=== PATIENT | female | born 1985 | race Caucasian/White ===

== ENCOUNTER 2017-11-17 12:44 | Inpatient (IN) | payer SELFPAY ==
[2017-11-17] MEDS ORDERED: Sodium Chloride 0.9% 1,000 ML IV STA (13:06)
[2017-11-17] MEDS ORDERED: Alum-Mag Hydrox-Simethicone Susp (30 mL) PO STA (13:07)
--- NOTE | 2017-11-17 13:09 | C.PDOC ---
History Of Present Illness 31 y/o F c PSHx x 2 p/w abdominal distention and epigastric, nonradiating pain x 3 days associated with constipation x 2 days and NBNB vomiting x 2 this morning. Denies fever, chills, chest pain, dyspnea, dysuria. Time Seen by Provider: 11/17/17 13:01 Chief Complaint (Nursing): Abdominal Pain Past Medical History Vital Signs: Last Vital Signs Temp 97.7 F 11/17/17 12:46 Pulse 65 11/17/17 15:57 Resp 20 11/17/17 15:57 BP 107/67 11/17/17 15:57 Pulse Ox 98 11/17/17 15:57 - [facility] Procedures LOW CERVICAL (05/19/14) Family History: States: No Known Family Hx - Social History Hx Tobacco Use: No Hx Alcohol Use: No Hx Substance Use: No - Immunization History Hx Tetanus Toxoid Vaccination: No Hx Influenza Vaccination: Yes (UTD) Hx Pneumococcal Vaccination: No Review Of Systems Except As Marked, All Systems Reviewed And Found Negative. Constitutional: Negative for: Fever Cardiovascular: Negative for: Chest Pain Physical Exam - Physical Exam Additional Physical Exam Comments: Gen: No acute distress. Head: Normocephalic, atraumatic. Eyes: PERRL. ENT: Moist mucous membranes. Neck: Supple. Chest: No tenderness. CV: Regular rate. Radial pulses 2+ bilaterally. Resp: Clear to auscultation bilaterally. Abd: Soft, Epigastric tenderness without guarding. Distended. Extremities: No swelling or tenderness. Skin: No rash. Neuro: Alert, no focal deficit. ED Course And Treatment - Laboratory Results Result Diagrams: 11/17/17 13:44 11/17/17 13:44 O2 Sat by Pulse Oximetry: 99 Medical Decision Making Medical Decision Making: Patient with previous abdominal surgery now with vomiting, distention, and constipation. CT to rule out obstruction. Differential also includes gastritis and . CT Results PROCEDURE: CT Abdomen and Pelvis with contrast HISTORY: vomiting, abd distention, constipation COMPARISON: None. TECHNIQUE: Contrast dose: 100 mL Visipaque 320 Radiation dose: Total exam DLP = 754 mGy-cm. This CT exam was performed using one or more of the following dose reduction techniques: Automated exposure control, adjustment of the mA and/or kV according to patient size, and/or use of iterative reconstruction technique. FINDINGS: LOWER THORAX: Unremarkable. LIVER: Unremarkable. No gross lesion or ductal dilatation. GALLBLADDER AND BILE DUCTS: Calcified cholelithiasis with gallbladder wall thickening and mild pericholecystic hazy change. PANCREAS: Unremarkable. No gross lesion or ductal dilatation. SPLEEN: Unremarkable. ADRENALS: Unremarkable. No mass. KIDNEYS AND URETERS: Unremarkable. No hydronephrosis. No solid mass. VASCULATURE: Unremarkable. No aortic aneurysm. BOWEL: Unremarkable. No obstruction. No gross mural thickening. APPENDIX: Normal appendix. PERITONEUM: Unremarkable. No free fluid. No free air. LYMPH NODES: Unremarkable. No enlarged lymph nodes. BLADDER: Unremarkable. REPRODUCTIVE: Unremarkable. BONES: No acute fracture. OTHER FINDINGS: None. IMPRESSION: Findings suspicious for acute cholecystitis. Right upper quadrant ultrasound can be obtained for further evaluation. Findings conveyed to Dr. Ro by Dr. Miranda at 3:45 pm on 11/17/2017. US Impression: Findings concerning for cholelithiasis likely complicated by cholecystitis. No biliary obstruction. On re-exam, patient continues to have RUQ tenderness. Dr. Graves accepts to her service, residential appraiser states he will come down and evaluate patient. Disposition Discussed With : Lauren Graves - Disposition Disposition: HOSPITALIZED Disposition Time: 19:18 Condition: GUARDED Forms: [facility] (Tai[place]ese) - Clinical Impression Clinical Impression: Acute cholecystitis
[2017-11-17] MEDS ORDERED: Sodium Chloride 0.9% 1,000 ML ONE (13:29)
[2017-11-17] MEDS ORDERED: Aluminum Hydroxide/Magnesium Hydroxide Susp (30 mL) ONE (13:29)
[2017-11-17 13:48] LABS: BASO % 0.4 % (0.0-2.0); EOS # 0.1 K/uL (0.0-0.7); EOS % 1.6 % (0.0-4.0); HEMATOCRIT 40.4 % (34.0-47.0); LYMPH # 1.6 K/uL (1.0-4.3); LYMPH % 23.5 % (20.0-40.0); MEAN CELL VOLUME 89.4 fL (81.0-99.0); MEAN CORPUSCULAR HEMOGLOBIN 30.9 pg (27.0-31.0); MEAN CORPUSCULAR HGB CONC 34.6 g/dL (33.0-37.0); MEAN PLATELET VOLUME 8.7 fL (7.2-11.7); MONO # 0.4 K/uL (0.0-0.8); MONO % 6.1 % (0.0-10.0); RED CELL DISTRIBUTION WIDTH 12.4 % (11.5-14.5); WHITE BLOOD COUNT 6.6 K/uL (4.8-10.8)
[2017-11-17 13:59] LABS: BLOOD UREA NITROGEN 14 mg/dL (7-17); CARBON DIOXIDE 26 mmol/L (22-30); CHLORIDE 98 mmol/L (98-107); GFR AFRICAN-AMERICAN > 60; GLUCOSE,RANDOM 101 mg/dL (65-105); POTASSIUM 4.6 mmol/L (3.6-5.2); SODIUM 130 mmol/L (132-148)
[2017-11-17 14:00] LABS: ALB/GLOB RATIO 1.3 (1.0-2.1); ALKALINE PHOSPHATASE 47 U/L (38-126); ALT/SGPT 32 U/L (9-52); AST/SGOT 24 U/L (14-36); BILIRUBIN,TOTAL 0.4 mg/dL (0.2-1.3); CALCIUM 8.8 mg/dl (8.6-10.4); TOTAL PROTEIN 7.8 g/dL (6.3-8.3)
[2017-11-17 14:30] LABS: URINE BILIRUBIN NEGATIVE (NEGATIVE); URINE BLOOD NEGATIVE (NEGATIVE); URINE COLOR Straw (YELLOW); URINE GLUCOSE (UA) NORMAL (Normal); URINE KETONE NEGATIVE (NEGATIVE); URINE LEUKOCYTE ESTERASE NEG Leu/uL (Negative); URINE PROTEIN NEGATIVE (NEGATIVE); URINE UROBILINOGEN NORMAL mg/dL (0.2-1.0); WBC URINE < 1 /hpf (0-5)
[2017-11-17] MEDS ORDERED: Iodixanol 320 MG/ML 100 ML BOTTLE IV ONE (15:13)
--- NOTE | 2017-11-17 15:49 | CT ---
PROCEDURE: CT Abdomen and Pelvis with contrast HISTORY: vomiting, abd distention, constipation COMPARISON: None. TECHNIQUE: Contrast dose: 100 mL Visipaque 320 Radiation dose: Total exam DLP = 754 mGy-cm. This CT exam was performed using one or more of the following dose reduction techniques: Automated exposure control, adjustment of the mA and/or kV according to patient size, and/or use of iterative reconstruction technique. FINDINGS: LOWER THORAX: Unremarkable. LIVER: Unremarkable. No gross lesion or ductal dilatation. GALLBLADDER AND BILE DUCTS: Calcified cholelithiasis with gallbladder wall thickening and mild pericholecystic hazy change. PANCREAS: Unremarkable. No gross lesion or ductal dilatation. SPLEEN: Unremarkable. ADRENALS: Unremarkable. No mass. KIDNEYS AND URETERS: Unremarkable. No hydronephrosis. No solid mass. VASCULATURE: Unremarkable. No aortic aneurysm. BOWEL: Unremarkable. No obstruction. No gross mural thickening. APPENDIX: Normal appendix. PERITONEUM: Unremarkable. No free fluid. No free air. LYMPH NODES: Unremarkable. No enlarged lymph nodes. BLADDER: Unremarkable. REPRODUCTIVE: Unremarkable. BONES: No acute fracture. OTHER FINDINGS: None. IMPRESSION: Findings suspicious for acute cholecystitis. Right upper quadrant ultrasound can be obtained for further evaluation. Findings conveyed to Dr. Ro by Dr. Miranda at 3:45 pm on 11/17/2017.
[2017-11-17] MEDS ORDERED: Piperacill/Tazo 4.5gm in Dex 4.5 GM/100 ML BAG IVPB STA (19:03)
[2017-11-17] MEDS ORDERED: HYDROmorphone 1 mg/ml ISec IVP PRN (20:08)
[2017-11-17] MEDS ORDERED: Piperacillin/Tazobact 3.375 GM in Sodium Chloride 100 ML IVPB SCH (20:15)
[2017-11-17] MEDS: Dextrose 5%/0.45% NS 1,000 ML IV SCH (20:54)
--- NOTE | 2017-11-17 21:39 | CP.PCM.HP ---
History of Present Illness - History of Present Illness History of Present Illness: General Surgery H&P This is a 31F with no PMH who presents with 2 days of abdominal pain that began after eating pork and beans. She has no associated nausea and vomiting. She denies any nausea , vomiting, or change in bowel habits. She reports a similar pain like this early this week that was self limiting. She denies any fevers or chills at home. PMH: None Meds: None PSH: Social: Denies ETOH, Drugs, Tobacco LMP: Sep ALL: NKDA Present on Admission - Present on Admission Any Indicators Present on Admission: No Review of Systems - Constitutional Constitutional: Anorexia, Headache. absent: Chills, Fever - EENT Eyes: absent: Blind Spots Ears: absent: Dizziness - Cardiovascular Cardiovascular: absent: Chest Pain - Respiratory Respiratory: absent: Dyspnea, Dyspnea on Exertion - Gastrointestinal Gastrointestinal: Abdominal Pain. absent: Diarrhea, Nausea, Vomiting Past Patient History - Infectious Disease Hx of Infectious Diseases: None - Past Social History Smoking Status: Never Smoked - PSYCHIATRIC Hx Substance Use: No - SURGICAL HISTORY Hx Surgeries: Yes Hx Section: Yes (x2) - ANESTHESIA Hx Anesthesia: Yes Hx Anesthesia Reactions: No Hx Malignant Hyperthermia: No Meds Allergies/Adverse Reactions: Allergies Allergy/AdvReac Type Severity Reaction Status Date / Time No Known Allergies Allergy Verified 11/17/17 12:48 Physical Exam - Constitutional Appears: Non-toxic, No Acute Distress - Head Exam Head Exam: ATRAUMATIC, NORMOCEPHALIC - Eye Exam Eye Exam: EOMI - ENT Exam ENT Exam: Mucous Membranes Moist - Respiratory Exam Respiratory Exam: NORMAL BREATHING PATTERN - Cardiovascular Exam Cardiovascular Exam: REGULAR RHYTHM, +S1, +S2 - GI/Abdominal Exam GI & Abdominal Exam: Soft, Tenderness. absent: Distended, Firm, Guarding, Rebound, Rigid - Neurological Exam Neurological exam: Alert, Oriented x3 - Psychiatric Exam Psychiatric exam: Normal Affect, Normal Mood - Skin Skin Exam: Dry, Intact Results - Vital Signs Recent Vital Signs: Last Vital Signs Temp 99.1 F 11/17/17 19:15 Pulse 72 11/17/17 20:52 Resp 18 11/17/17 20:52 BP 102/67 11/17/17 20:52 Pulse Ox 100 11/17/17 20:52 - Labs Result Diagrams: 11/17/17 13:44 11/17/17 13:44 Labs: Laboratory Results - last 24 hr 11/17/17 11/17/17 11/17/17 13:44 13:44 14:19 WBC 6.6 RBC 4.52 Hgb 14.0 D Hct 40.4 MCV 89.4 D MCH 30.9 MCHC 34.6 RDW 12.4 Plt Count 191 MPV 8.7 Neut % (Auto) 68.4 Lymph % (Auto) 23.5 [place] % (Auto) 6.1 Eos % (Auto) 1.6 Baso % (Auto) 0.4 Neut # 4.5 Lymph # 1.6 [place] # 0.4 Eos # 0.1 Baso # 0.0 Sodium 130 L Potassium 4.6 Chloride 98 Carbon Dioxide 26 Anion Gap 11 BUN 14 Creatinine 0.5 L Est GFR ( Amer) > 60 Est GFR (Non-Af Amer) > 60 Random Glucose 101 Calcium 8.8 Total Bilirubin 0.4 AST 24 ALT 32 Alkaline Phosphatase 47 Total Protein 7.8 Albumin 4.4 Globulin 3.4 Albumin/Globulin Ratio 1.3 Lipase 54 Urine Color Straw Urine Clarity Clear Urine pH 6.0 Ur Specific [place] 1.008 Urine Protein Negative Urine Glucose (UA) Normal Urine Ketones Negative Urine Blood Negative Urine Nitrate Negative Urine Bilirubin Negative Urine Urobilinogen Normal Ur Leukocyte Esterase Neg Urine WBC (Auto) < 1 Ur Squamous Epith Cells 1 Urine HCG, Qual Negative Assessment & Plan - Assessment and Plan (Free Text) Assessment: This is a 31F with no PMH presenting with an acute cholecystitis Vital Signs Stable LFTs WNL CBC WNL My US interpretation : GB Stones, GB wall edema, Pericholecystic fluid. Will follow up official read RAMONA Ryder NPO Ojid for pain Followup AM labs OR tomorrow for lap josé D/W Dr. Star Garsia PGY2
[2017-11-18] MEDS: Piperacill/Tazo 3.375gm in Dex 3.375 GM/50 ML BAG IVPB SCH ×3 (00:39→13:26)
[2017-11-18] MEDS: Dextrose 5%/0.45% NS 1,000 ML IV SCH (06:36)
[2017-11-18 06:55] LABS: BASO % 0.4 % (0.0-2.0); EOS # 0.4 K/uL (0.0-0.7); EOS % 7.2 % (0.0-4.0); HEMATOCRIT 38.9 % (34.0-47.0); LYMPH # 2.7 K/uL (1.0-4.3); LYMPH % 48.4 % (20.0-40.0); MEAN CELL VOLUME 89.3 fL (81.0-99.0); MEAN CORPUSCULAR HEMOGLOBIN 30.9 pg (27.0-31.0); MEAN CORPUSCULAR HGB CONC 34.7 g/dL (33.0-37.0); MEAN PLATELET VOLUME 8.5 fL (7.2-11.7); MONO # 0.4 K/uL (0.0-0.8); RED CELL DISTRIBUTION WIDTH 12.2 % (11.5-14.5); WHITE BLOOD COUNT 5.6 K/uL (4.8-10.8)
[2017-11-18 07:26] LABS: INR 1.1
[2017-11-18 08:30] LABS: ALB/GLOB RATIO 1.3 (1.0-2.1); ALKALINE PHOSPHATASE 39 U/L (38-126); ALT/SGPT 25 U/L (9-52); AST/SGOT 21 U/L (14-36); BILIRUBIN,TOTAL 0.5 mg/dL (0.2-1.3); BLOOD UREA NITROGEN 9 mg/dL (7-17); CALCIUM 8.3 mg/dl (8.6-10.4); CARBON DIOXIDE 26 mmol/L (22-30); CHLORIDE 104 mmol/L (98-107); GFR AFRICAN-AMERICAN > 60; GLUCOSE,RANDOM 113 mg/dL (65-105); POTASSIUM 3.7 mmol/L (3.6-5.2); SODIUM 136 mmol/L (132-148); TOTAL PROTEIN 6.6 g/dL (6.3-8.3)
[2017-11-18] MEDS ORDERED: Propofol 10 mg/ml Inj (20 ML) ONE (08:33)
[2017-11-18] MEDS ORDERED: Midazolam 2 MG/2 ML VIAL ONE (08:33)
[2017-11-18] MEDS ORDERED: Lidocaine Hydrochloride 5 ML INJ ONE (08:36)
[2017-11-18] MEDS ORDERED: Rocuronium 10 mg/ml (5 ml) ONE (08:36)
[2017-11-18] MEDS ORDERED: Lactated Ringer's 1,000 ML IV ONE ×4 (09:27→10:45)
[2017-11-18] MEDS ORDERED: Neostigmine Methylsulfate 3mg/3ml Syringe IV ONE (10:19)
--- NOTE | 2017-11-18 10:42 | US ---
HISTORY: abd pain, vomiting COMPARISON: CT abdomen pelvis with contrast performed 11/17/17 TECHNIQUE: Sonographic evaluation of the abdomen. FINDINGS: LIVER: Measures 15.0 cm in sagittal dimension and appears within normal limits of size, shape, and echotexture. No focal hepatic mass identified. The main portal vein appears patent with normal directional flow. No intrahepatic bile duct dilatation. GALLBLADDER: Distended gallbladder. Gallstones. Gallbladder wall thickening/ pericholecystic edema measuring up to 7 mm. Negative sonographic Arzate's sign as assessed by the direct care staffer. COMMON BILE DUCT: Measures 5 mm. PANCREAS: Not well visualized. RIGHT KIDNEY: Measures 11.1 x 4.4 x 5.9 cm. No obstructing calculus or hydronephrosis identified. LEFT KIDNEY: Measures 12.1 x 4.9 x 5.5 cm. No obstructing calculus or hydronephrosis identified. SPLEEN: Measures approximately 9.5 cm. AORTA: Limited views appear unremarkable. IVC: Limited views appear unremarkable. OTHER FINDINGS: None. IMPRESSION: Distended gallbladder. Gallstones. Gallbladder wall thickening/ pericholecystic edema measuring up to 7 mm. Negative sonographic Arzate's sign as assessed by the direct care staffer. Correlate clinically for possibility of acute cholecystitis. Preliminary impression was provided by virtual radiologic.
--- NOTE | 2017-11-18 10:47 | PCM.SURG1 ---
Surgeon's Initial Post Op Note - Surgeon's Notes Surgeon: Dr. Graves Real Estate Salesperson: Dr. Rawls PGY3, Dr. Mixon PGY2 Type of Anesthesia: General Endo Pre-Operative Diagnosis: acute cholecystitis Operative Findings: see dictation Post-Operative Diagnosis: same Operation Performed: laparoscopic cholecystectomy Specimen/Specimens Removed: gallbladder Estimated Blood Loss: EBL {In ML}: 10 Blood Products Given: N/A Drains Used: No Drains Post-Op Condition: Good Date of Surgery/Procedure: 11/18/17 Time of Surgery/Procedure: 09:30
[2017-11-18] MEDS ORDERED: Oxycodone/Acetaminophen 5/325 mg Tab PO PRN (10:48)
[2017-11-18 12:29] VITALS: RESP 20; TEMP 98.2
[2017-11-18] MEDS ORDERED: Pneumococcal 23-Valent Vaccine IM ONE (13:58)
[2017-11-18] MEDS ORDERED: Influenza Vaccine 60 mcg/0.5 mL SYR (4YR UP) IM ONE (13:58)
[2017-11-18 16:36] VITALS: BP 99/60; PULSE 65; O2SAT 95
--- NOTE | 2017-11-18 17:50 | CP.PCM.DIS ---
Provider - Provider Date of Admission: 11/17/17 19:15 Attending physician: Lauren Graves MD Time Spent in preparation of Discharge (in minutes): 5 Hospital Course - Lab Results Lab Results: Most Recent Lab Values WBC 5.6 K/uL (4.8-10.8) 11/18/17 06:49 RBC 4.36 Mil/uL (3.80-5.20) 11/18/17 06:49 Hgb 13.5 g/dL (11.0-16.0) 11/18/17 06:49 Hct 38.9 % (34.0-47.0) 11/18/17 06:49 MCV 89.3 fL (81.0-99.0) 11/18/17 06:49 MCH 30.9 pg (27.0-31.0) 11/18/17 06:49 MCHC 34.7 g/dL (33.0-37.0) 11/18/17 06:49 RDW 12.2 % (11.5-14.5) 11/18/17 06:49 Plt Count 191 K/uL (130-400) 11/18/17 06:49 MPV 8.5 fL (7.2-11.7) 11/18/17 06:49 Neut % (Auto) 36.0 % (50.0-75.0) L 11/18/17 06:49 Lymph % (Auto) 48.4 % (20.0-40.0) H 11/18/17 06:49 [place] % (Auto) 8.0 % (0.0-10.0) 11/18/17 06:49 Eos % (Auto) 7.2 % (0.0-4.0) H 11/18/17 06:49 Baso % (Auto) 0.4 % (0.0-2.0) 11/18/17 06:49 Neut # 2.0 K/uL (1.8-7.0) 11/18/17 06:49 Lymph # 2.7 K/uL (1.0-4.3) 11/18/17 06:49 [place] # 0.4 K/uL (0.0-0.8) 11/18/17 06:49 Eos # 0.4 K/uL (0.0-0.7) 11/18/17 06:49 Baso # 0.0 K/uL (0.0-0.2) 11/18/17 06:49 PT 12.3 SECONDS (9.7-12.2) H 11/18/17 06:49 INR 1.1 11/18/17 06:49 APTT 27 SECONDS (21-34) 11/18/17 06:49 Sodium 136 mmol/L (132-148) 11/18/17 06:49 Potassium 3.7 mmol/L (3.6-5.2) 11/18/17 06:49 Chloride 104 mmol/L (98-107) 11/18/17 06:49 Carbon Dioxide 26 mmol/L (22-30) 11/18/17 06:49 Anion Gap 9 (10-20) L 11/18/17 06:49 BUN 9 mg/dL (7-17) 11/18/17 06:49 Creatinine 0.6 mg/dL (0.7-1.2) L 11/18/17 06:49 Est GFR ( Amer) > 60 11/18/17 06:49 Est GFR (Non-Af Amer) > 60 11/18/17 06:49 Random Glucose 113 mg/dL (65-105) H 11/18/17 06:49 Calcium 8.3 mg/dl (8.6-10.4) L 11/18/17 06:49 Total Bilirubin 0.5 mg/dL (0.2-1.3) 11/18/17 06:49 AST 21 U/L (14-36) 11/18/17 06:49 ALT 25 U/L (9-52) 11/18/17 06:49 Alkaline Phosphatase 39 U/L (38-126) 11/18/17 06:49 Total Protein 6.6 g/dL (6.3-8.3) 11/18/17 06:49 Albumin 3.7 g/dL (3.5-5.0) 11/18/17 06:49 Globulin 2.9 gm/dL (2.2-3.9) 11/18/17 06:49 Albumin/Globulin Ratio 1.3 (1.0-2.1) 11/18/17 06:49 Lipase 54 U/L (23-300) 11/17/17 13:44 Urine Color Straw (YELLOW) 11/17/17 14:19 Urine Clarity Clear (Clear) 11/17/17 14:19 Urine pH 6.0 (5.0-8.0) 11/17/17 14:19 Ur Specific [place] 1.008 (1.003-1.030) 11/17/17 14:19 Urine Protein Negative mg/dL (NEGATIVE) 11/17/17 14:19 Urine Glucose (UA) Normal mg/dL (Normal) 11/17/17 14:19 Urine Ketones Negative mg/dL (NEGATIVE) 11/17/17 14:19 Urine Blood Negative (NEGATIVE) 11/17/17 14:19 Urine Nitrate Negative (NEGATIVE) 11/17/17 14:19 Urine Bilirubin Negative (NEGATIVE) 11/17/17 14:19 Urine Urobilinogen Normal mg/dL (0.2-1.0) 11/17/17 14:19 Ur Leukocyte Esterase Neg Sdidharth/uL (Negative) 11/17/17 14:19 Urine WBC (Auto) < 1 /hpf (0-5) 11/17/17 14:19 Ur Squamous Epith Cells 1 /hpf (0-5) 11/17/17 14:19 Urine HCG, Qual Negative (NEGATIVE) 11/18/17 05:26 - Hospital Course Hospital Course: pt is a 31F who presented with new onset RUQ pain accompanied by N/V. Work-up in ED revealed acute cholecystitis. Pt was admitted and placed on abx. Taken to OR for laparoscopic cholecystectomy. tolerated surgery well. After surgery pt tolerated regular diet, pain is well controlled on percocet and pt requested to be discharged. Pt d/c with Rx for percocet and detailed post-op instructions in her [place] language. F/U in clinic in 1 week Discharge Exam - Head Exam Head Exam: ATRAUMATIC, NORMOCEPHALIC - Eye Exam Eye Exam: Normal appearance - Respiratory Exam Respiratory Exam: NORMAL BREATHING PATTERN. absent: Accessory Muscle Use, Respiratory Distress - Cardiovascular Exam Cardiovascular Exam: REGULAR RHYTHM. absent: Tachycardia - GI/Abdominal Exam GI & Abdominal Exam: Soft, Tenderness (post-op). absent: Distended, Firm, Guarding, Hernia Additional comments: dressing c/d/i Discharge Plan - Discharge Medications Prescriptions: oxyCODONE/Acetaminophen [Percocet 5/325 mg Tab] 1 tab PO Q4H PRN #12 tab PRN Reason: Pain, Moderate (4-7) - Follow Up Plan Condition: GUARDED Disposition: HOME/ ROUTINE Instructions: Cholecystitis (DC), Cholecystitis (GEN) Additional Instructions: puede didi glover milawrence alexandre la gasa miercoles tambien dick a la oficina de Dr Graves en yfn semana
--- NOTE | 2017-11-18 20:12 | OP ---
PROCEDURE DATE: 11/18/2017 SURGEON: Lauren Graves MD. THEATRE PROFESSOR: Dr. Rawls and Dr. Mixon. TYPE OF ANESTHESIA: General. PREOPERATIVE DIAGNOSIS: Acute cholecystitis. POSTOPERATIVE DIAGNOSIS: Acute cholecystitis. PROCEDURE: Laparoscopic cholecystectomy. DESCRIPTION OF OPERATION: With the patient in the supine position under adequate general anesthesia, the abdomen was prepped and draped in usual sterile manner. Veress needle puncture was performed at the umbilicus with insufflation to 15 cm water pressure of CO2 and a 10 mm laparoscopic trocar was inserted via an infraumbilical incision. Under direct vision, additional trocars were inserted in the epigastrium and right costal margin. The gallbladder was visualized, it was softly distended and appeared thickened consistent with acute cholecystitis. The gallbladder fundus was grasped and elevated. The infundibulum was grasped and retracted laterally. Areolar tissue and some edema were dissected away and the cystic duct was identified. Additional dissection identified the cystic artery and both structures were viewed anteriorly and posteriorly for a view of safety. The cystic duct was then triply clipped and divided and the cystic artery was also triply clipped and divided. The gallbladder was dissected free of the liver bed using electrocautery. The liver bed was edematous consistent with acute cholecystitis. The liver bed was inspected for hemostasis and the dissection was completed. The gallbladder was placed in a specimen retrieval bag and removed via the umbilical port site. Right upper quadrant was irrigated and suctioned. The pneumoperitoneum was released and the trocars were removed. The umbilical port site was closed with a [id number] fascial suture of 0 Vicryl. All incisions were closed with 4-0 Monocryl subcuticular sutures and Steri-Strips. Dry sterile dressings were applied. The patient tolerated the procedure well and transferred to recovery room in stable condition. Estimated blood loss for the procedure was 10 mL. Lauren Graves MD
== END 2017-11-18 19:34 | disposition home or self-care (01) | DRG 419 ==
LOC: C.ER 12:44 → C.9E 19:15 → C.3T 20:04
PROVIDERS: ADMIT Specialist; ATTEND Specialist
PROC: 0FT44ZZ Resection of Gallbladder, Percutaneous Endoscopic Approach (ICD-10-PCS; principal; 2017-11-18 13:45)
DX: K80.00 Calculus of gallbladder with acute cholecystitis without obstruction (principal)

== ENCOUNTER 2018-05-12 14:56 | Emergency (ER) | payer OTHER ==
[2018-05-12 15:08] VITALS: PULSE 70; O2SAT 99
[2018-05-12] MEDS ORDERED: Alum-Mag Hydrox-Simethicone Susp (30 mL) PO STA (15:18)
[2018-05-12 15:39] LABS: BASO % 0.2 % (0.0-2.0); EOS # 0.1 K/uL (0.0-0.7); EOS % 2.2 % (0.0-4.0); HEMOGLOBIN 12.8 g/dL (11.0-16.0); LYMPH # 2.7 K/uL (1.0-4.3); LYMPH % 46.2 % (20.0-40.0); MEAN CELL VOLUME 90.4 fL (81.0-99.0); MEAN CORPUSCULAR HEMOGLOBIN 30.7 pg (27.0-31.0); MEAN CORPUSCULAR HGB CONC 33.9 g/dL (33.0-37.0); MEAN PLATELET VOLUME 8.6 fL (7.2-11.7); MONO # 0.4 K/uL (0.0-0.8); MONO % 6.7 % (0.0-10.0); NEUT # 2.6 K/uL (1.8-7.0); NEUT % 44.7 % (50.0-75.0); NRBC % 0.1 % (0.0-2.0); RBC 4.18 Mil/uL (3.80-5.20); RED CELL DISTRIBUTION WIDTH 12.5 % (11.5-14.5); WHITE BLOOD COUNT 5.8 K/uL (4.8-10.8)
[2018-05-12 15:43] LABS: HCG,QUALITATIVE URINE NEGATIVE (NEGATIVE)
[2018-05-12 15:46] LABS: URINE BILIRUBIN NEGATIVE (NEGATIVE); URINE BLOOD NEGATIVE (NEGATIVE); URINE CLARITY Clear (Clear); URINE COLOR Straw (YELLOW); URINE GLUCOSE (UA) NORMAL (Normal); URINE LEUKOCYTE ESTERASE NEG Leu/uL (Negative); URINE PROTEIN NEGATIVE (NEGATIVE); URINE UROBILINOGEN NORMAL mg/dL (0.2-1.0)
[2018-05-12] MEDS ORDERED: Aluminum Hydroxide/Magnesium Hydroxide Susp (30 mL) ONE (15:48)
[2018-05-12 15:54] LABS: ALB/GLOB RATIO 1.4 (1.0-2.1); ALBUMIN 4.4 g/dL (3.5-5.0); ALT/SGPT 23 U/L (9-52); AST/SGOT 31 U/L (14-36); BLOOD UREA NITROGEN 16 mg/dL (7-17); CALCIUM 9.1 mg/dl (8.6-10.4); GFR AFRICAN-AMERICAN > 60; GFR NON-AFRICAN AMERICAN > 60; LIPASE 84 U/L (23-300)
--- NOTE | 2018-05-12 16:10 | C.PDOC ---
Time Seen by Provider: 05/12/18 15:11 Chief Complaint (Nursing): Abdominal Pain History Per: Patient, Family Onset/Duration Of Symptoms: Days (2) Current Symptoms Are (Timing): Still Present Severity: Moderate Location Of Pain/Discomfort: Epigastric Quality Of Discomfort: Unable To Describe, "Pain", Gas (Fullness) Associated Symptoms: Constipation Exacerbating Factors: Food Alleviating Factors: None Additional History Per: Prior Records Abnormal Vaginal Bleeding: No Past Medical History Reviewed: Historical Data, Nursing Documentation, Vital Signs Vital Signs: Last Vital Signs Temp 98.2 F 05/12/18 15:03 Pulse 70 05/12/18 15:03 Resp 18 05/12/18 15:03 BP 110/70 05/12/18 15:03 Pulse Ox 99 05/12/18 16:10 - Medical History PMH: No Chronic Diseases Surgical History: Cholecystectomy, - [facility] Procedures LOW CERVICAL (05/19/14) RESECTION OF GALLBLADDER, PERCUTANEOUS ENDOSCOPIC APPROACH (11/17/17) Family History: States: Unknown Family Hx - Social History Hx Tobacco Use: No Hx Alcohol Use: No Hx Substance Use: No - Immunization History Hx Tetanus Toxoid Vaccination: No Hx Influenza Vaccination: Yes (UTD) Hx Pneumococcal Vaccination: No Review Of Systems Except As Marked, All Systems Reviewed And Found Negative. Constitutional: Negative for: Fever, Weakness Cardiovascular: Negative for: Chest Pain Respiratory: Negative for: Shortness of Breath Gastrointestinal: Positive for: Abdominal Pain, Constipation. Negative for: Vomiting, Diarrhea, Melena, Hematochezia, Hematemesis Genitourinary: Negative for: Dysuria Musculoskeletal: Negative for: Neck Pain, Back Pain Skin: Negative for: Rash Neurological: Negative for: Weakness, Numbness Physical Exam - Physical Exam Appears: Non-toxic, No Acute Distress Skin: Normal Color, Warm, Dry, No Rash Head: Atraumatic, Normacephalic Eye(s): bilateral: Normal Inspection, PERRL, EOMI Neck: Normal ROM, Supple Cardiovascular: Rhythm Regular Respiratory: Normal Breath Sounds, No Accessory Muscle Use Gastrointestinal/Abdominal: Soft, Tenderness (mild, nonspecific), No Guarding, No Rebound Back: No CVA Tenderness Extremity: Normal ROM Neurological/Psych: Oriented x3, Normal Motor, Normal Sensation ED Course And Treatment - Laboratory Results Result Diagrams: 05/12/18 15:33 05/12/18 15:33 Lab Interpretation: No Acute Changes Urine POC: Negative O2 Sat by Pulse Oximetry: 99 Pulse Ox Interpretation: Normal Progress Note: Pt feels much better and wants to go home. Reassessment Condition: Improved Progress - Interventions Interventions:: Observation - Medications Administered Oral: Antacid Intravenous: H-2 jose daniel - Data Reviewed Data Reviewed: Lab, Old records - Patient Status Patient status: Mostly improved - Continuity of Care Discussed patient case with:: Patient, Family-HIPPA compliant, ED Nurse - Patient Plan Patient Plan: Discharge, F/U with PCP Disposition Counseled Patient/Family Regarding: Studies Performed, Diagnosis, Need For Followup, Rx Given - Disposition Referrals: [facility] [Outside] Disposition: HOME/ ROUTINE Disposition Time: 16:41 Condition: IMPROVED Additional Instructions: Follow up with your doctor or in the clinic for further evaluation and treatment. Return to the ER if you develop fever, vomiting, bloody or black stools, worsening of symptoms or if you have any other concerns. Prescriptions: Famotidine [Pepcid] 20 mg PO BID #30 tab Polyethylene Glycol 3350 [Miralax] 17 gm PO DAILY #7 packet Instructions: Dyspepsia (DC), Constipation in Adults Print Language: BARBADIAN - Clinical Impression Clinical Impression: Dyspepsia, Constipation
[2018-05-12 16:53] VITALS: BP 110/68; RESP 16; TEMP 98.7
== END 2018-05-12 16:52 | disposition home or self-care (01) ==
LOC: C.ER 14:56
DX: K59.00 Constipation, unspecified (principal); R10.13 Epigastric pain